=== PATIENT | female | born 1990 | race Caucasian/White ===

== ENCOUNTER 2023-11-24 02:24 | Emergency (ER) | payer BC, MEDICAID ==
[2023-11-24] MEDS: Azithromycin 250 MG Tab PO STA (02:48)
[2023-11-24] MEDS: predniSONE 20 MG Tab PO STA (02:50)
[2023-11-24 03:31] LABS: CORONAVIRUS COVID-19 NAA NEGATIVE (NEGATIVE); INFLUENZA A NAA NEGATIVE (NEGATIVE); INFLUENZA B NAA NEGATIVE (NEGATIVE)
== END 2023-11-24 03:38 | disposition home or self-care (01) ==
LOC: MW.ED 02:24
DX: J02.9 Acute pharyngitis, unspecified (principal); Z88.6 Allergy status to analgesic agent; Z91.040 Latex allergy status; Z88.0 Allergy status to penicillin; Z88.8 Allergy status to other drugs, medicaments and biological substances; Z79.899 Other long term (current) drug therapy; Z79.84 Long term (current) use of oral hypoglycemic drugs; Z75.8 Other problems related to medical facilities and other health care
CPT/HCPCS: 0240U; 99283; A9270